=== PATIENT | female | born 1945 | race Caucasian/White ===

== ENCOUNTER → 2017-10-28 | Outpatient (CLI) | payer MEDICARE, OTHER ==
[~2017-10-28] MED LIST: DOC100 PO; PER PO
--- NOTE | 2017-11-02 08:48 | RADIOLOGY IMAGING REPORT ---
FACILITY: [facility] - [place] PATIENT NAME: HENRY POLANCO : [id number] MR: [id number] V: [id number] EXAM DATE: [id number] ORDERING PHYSICIAN: SHAUN WHITE TECHNOLOGIST: Belinda Hayes PROCEDURE:BILATERAL DIGITAL SCREENING MAMMOGRAM WITH CAD ASSISTED INTERPRETATION AND 3D BREAST TOMOSYNTHESIS. COMPARISON:Prior mammograms dated 10/23/16, 10/08/15, 08/23/13, 08/17/12 and 08/05/11. INDICATIONS:SCREENING FINDINGS: Small to moderate amount of fibroglandular tissue is seen throughout the breasts. The parenchymal pattern has remained stable when allowing for difference in mammographic technique and patient positioning. There is no evidence of malignant appearing mass, malignant appearing calcification or other secondary sign of malignancy in either breast. DIAGNOSTIC CATEGORY 1--NEGATIVE. RECOMMENDATIONS: ROUTINE MAMMOGRAM AND CLINICAL EVALUATION. IMPRESSION: Bi-RADS 1: No significant abnormality is seen. Images were reviewed with R2CAD and 3D breast tomosynthesis. Dictated by: Leatha Randall M.D. on 10/28/2017 at 14:11 Transcribed by: MILTON on 10/28/2017 at 19:42 Approved by: Leatha Randall M.D. on 11/02/2017 at 8:47 [facility]
== END ==
LOC: MAMO 01:24
PROVIDERS: ATTEND Nurse Practitioner Family
DX: Z12.31 Encounter for screening mammogram for malignant neoplasm of breast (principal)
CPT/HCPCS: 77063; 77067

== ENCOUNTER → 2018-11-10 | Outpatient (CLI) | payer MEDICARE, OTHER ==
--- NOTE | 2018-11-10 11:51 | RADIOLOGY IMAGING REPORT ---
FACILITY: [facility] - [place] PATIENT NAME: Jessica Waddell : 1945 MR: [id number] V: [id number] EXAM DATE: ORDERING PHYSICIAN: SHAUN WHITE TECHNOLOGIST: Location: [facility] Patient: Jessica Waddell : 1945 Visit/Account:[id number] Date of Sevice: 11/10/2018 DEXA Scan Clinical history: Screening. Comparison: DEXA scan from 08/09/2007. LUMBAR SPINE: The bone mineral density (BMD) measured from L1-L4 correlates with a Z-score of -0.4 and a T-score of -2.4 which is osteopenia as defined by the World Health Organization. The corresponding risk of fra cture in the lumbar spine is 4-6 times increased compared with a young adult reference population. T his value has decrease by two % since the prior study. More than 5% change is considered significant . HIP: Bone mineral density (BMD) measured in the LEFT total hip region correlates with a Z-score 0.2 and a T-score of -1.7 which is osteopenia as defined by the World Health Organization. The corresponding r isk of fracture in the hip is 3-4 times increased compared to a young adult reference population. Thi s value has decrease by 8.1 % since the prior study. More than 5% change is considered significant. T score left femoral neck -2.1 Bone mineral density (BMD) measured in the Femoral Neck region measures 0.750 g/cm?. IMPRESSION: 1. Lumbar spine: Osteopenia. There has been 2% decrease in the bone mineral density since the previ ous exam. 2. Left Total Hip: Osteopenia. There has been 8.1% decrease in the bone mineral density since the p revious exam. 3. Femoral Neck: Bone Mineral Density is 0.750 g/cm? The next DEXA scan of this patient should include the following sites: L1-L4 and the left hip. FRAX? WHO Fracture Risk Assessment Tool link: <http://www.shef.ac.uk/FRAX/tool.jsp?locationValue=9> PLEASE NOTE: 1) The World Health Organization defines low BMD as follows: T-score Normal > -1 Osteopenia < -1 and > -2.5 Osteoporosis < -2.5 without fractures Established osteoporosis < -2.5 with fractures 2) In general, you may wish to consider: Diagnosis Treatment Follow-up DEXA Normal BMD Prevention 2-3 years Osteopenia Prevention/therapy 1-2 years Osteoporosis Therapy Yearly 3) Fracture risk estimated from the T-score is more accurate for vertebral fractures (often spontane ous) than for hip fractures. Report Dictated By: Leatha Randall MD at 11/10/2018 11:46 AM Report E-Signed By: Leatha Randall MD at 11/10/2018 11:47 AM WSN:[email or web address]
--- NOTE | 2018-11-10 16:45 | RADIOLOGY IMAGING REPORT ---
FACILITY: [facility] PATIENT NAME: HENRY POLANCO : [id number] MR: [id number] V: [id number] EXAM DATE: ORDERING PHYSICIAN: SHAUN WHITE TECHNOLOGIST: Liv Williamson PROCEDURE:BILATERAL DIGITAL SCREENING MAMMOGRAM WITH CAD ASSISTED INTERPRETATION & 3D TOMOSYNTHESIS COMPARISON:Prior mammograms 10/28/17, 10/23/16, 10/08/15, 08/23/13, 08/17/12. INDICATIONS:SCREEING FINDINGS: The breasts are heterogeneously dense which can obscure small masses. The parenchymal pattern has remained stable allowing for difference in mammographic technique & patient positioning. DIAGNOSTIC CATEGORY 1--NEGATIVE. RECOMMENDATIONS: ROUTINE MAMMOGRAM AND CLINICAL EVALUATION. IMPRESSION: BIRADS 1: Negative. No significant abnormality is seen. Dictated by: Leatha Randall M.D. on 11/10/2018 at 9:37 Transcribed by: ETTE on 11/10/2018 at 10:22 Approved by: Leatha Randall M.D. on 11/10/2018 at 16:44 [facility]
== END ==
LOC: MAMO 01:08
PROVIDERS: ATTEND Nurse Practitioner Family
DX: Z13.820 Encounter for screening for osteoporosis (principal); Z12.31 Encounter for screening mammogram for malignant neoplasm of breast; M85.89 Other specified disorders of bone density and structure, multiple sites
CPT/HCPCS: 77063; 77067; 77080